=== PATIENT | male | born 1990 | race Asian ===

== ENCOUNTER 2017-10-06 20:51 | Emergency (ER) | payer OTHER ==
[~2017-10-06] VITALS: Ht 180.3 cm; Wt 116.1 kg
[2017-10-06 21:25] VITALS: Ht 180.3 cm; Wt 116.1 kg
[2017-10-06 23:22] VITALS: BP 118/79
== END 2017-10-06 23:22 | disposition home or self-care (01) ==
LOC: ED 20:51
DX: S61.452A Open bite of left hand, initial encounter (principal); W54.0XXA Bitten by dog, initial encounter; Y93.89 Activity, other specified; Y99.8 Other external cause status; Y92.89 Other specified places as the place of occurrence of the external cause
CPT/HCPCS: 90715

== ENCOUNTER 2018-10-18 09:21 | Emergency (ER) | payer OTHER ==
[~2018-10-18] VITALS: Ht 180.3 cm; Wt 115.7 kg
[2018-10-18 09:26] VITALS: BP 140/82; Ht 180.3 cm; Wt 115.7 kg
== END 2018-10-18 10:02 | disposition home or self-care (01) ==
LOC: ED 09:21
DX: R20.2 Paresthesia of skin (principal)

== ENCOUNTER 2019-09-14 21:31 | Emergency (ER) | payer OTHER ==
[~2019-09-14] VITALS: Ht 180.3 cm; Wt 103.4 kg
[2019-09-14 21:38] VITALS: BP 127/73; Ht 180.3 cm; Wt 103.4 kg
[2019-09-14 21:50] LABS: microscopic required? NO
[2019-09-14 22:07] LABS: UA SPECIFIC GRAVITY <=1.005 (1.005-1.035); urine erythrocyte NEGATIVE (NEGATIVE)
== END 2019-09-14 22:14 | disposition home or self-care (01) ==
LOC: ED 21:31
PROVIDERS: Internal Medicine Critical Care Medicine
DX: R30.0 Dysuria (principal)

== ENCOUNTER 2019-09-29 14:52 | Emergency (ER) | payer OTHER ==
[~2019-09-29] VITALS: Ht 182.9 cm; Wt 99.8 kg
[2019-09-29 15:04] VITALS: Ht 182.9 cm; Wt 99.8 kg
[2019-09-29 16:07] LABS: BASOPHIL % 0.1 % (0-2); PLATELET COUNT 177 x10^3mcL (130-400); RED CELL DISTRIBUTION WIDTH 13.4 % (11.5-14.5)
[2019-09-29 16:20] LABS: CALCIUM 8.7 mg/dL (8.5-10.1); CARBON DIOXIDE 28.5 mmol/L (21-32); CHLORIDE SERUM 104 mmol/L (98-107); CREATININE SERUM 0.6 mg/dL (0.7-1.3); GFR1 > 60 mL/min; GLUCOSE SERUM 89 mg/dL (74-106); POTASSIUM SERUM 3.8 mmol/L (3.5-5.1); SODIUM SERUM 138 mmol/L (136-145)
[2019-09-29 16:25] LABS: ALKALINE PHOSPHATASE 51 U/L (46-116); ALT/SGPT 58 U/L (16-63); AST/SGOT 26 U/L (15-37); BILIRUBIN TOTAL 0.33 mg/dL (0.20-1.00); LIPASE 70 IU/L (73-393)
[2019-09-29 16:27] LABS: TOTAL PROTEIN, SERUM 8.4 g/dL (6.4-8.2)
[2019-09-29 20:09] VITALS: BP 107/68
== END 2019-09-29 20:09 | disposition home or self-care (01) ==
LOC: ED 14:52
PROVIDERS: Emergency Medicine
DX: K52.9 Noninfective gastroenteritis and colitis, unspecified (principal)